=== PATIENT | male | born 1980 | race Caucasian/White ===

== ENCOUNTER 2019-04-12 10:31 | Emergency (ER) | payer OTHER ==
[2019-04-12 10:35] VITALS: RESP 18; TEMP 98.7
--- NOTE | 2019-04-12 11:31 | ED ---
Male Urogenital HPI - General Chief complaint: Urogenital Stated complaint: Unable to urinate Time Seen by Provider: 04/12/19 11:00 Source: patient, RN notes reviewed Mode of arrival: ambulatory Limitations: no limitations - History of Present Illness Initial comments: 38-year-old male presents emergency Department chief complaint of dysuria comfortable to urinate. Patient states she was seen last week at urgent care and was diagnosed with urinary tract infection. Patient states she's never had any issues with this in the past denies any history of gonorrhea chlamydia. Patient denies any penile discharge. Patient states he has pain between his scrotum and anus when he sits. Patient states that he was seen again at [facility] and was given for the next day but also advised to go to the emergency department. - Related Data Home Medications Medication Instructions Recorded Confirmed Albuterol Sulfate [Proair Hfa] 1 - 2 puff INHALATION RT-Q6H PRN 04/12/19 04/12/19 Fenofibrate,Micronized 67 mg PO DAILY@1200 04/12/19 04/12/19 [Fenofibrate] Glimepiride [Amaryl] 4 mg PO BID 04/12/19 04/12/19 Lisinopril [Zestril] 40 mg PO DAILY@1200 04/12/19 04/12/19 Omeprazole 20 mg PO DAILY PRN 04/12/19 04/12/19 metFORMIN HCL [metFORMIN HCL ER] 750 mg PO W/SUPPER 04/12/19 04/12/19 Previous Rx's Medication Instructions Recorded Sulfamethox-Tmp 800-160Mg [Bactrim 1 each PO Q12HR #20 tab 04/12/19 Ds] Allergies Allergy/AdvReac Type Severity Reaction Status Date / Time No Known Allergies Allergy Verified 04/12/19 11:26 Review of Systems ROS Statement: Those systems with pertinent positive or pertinent negative responses have been documented in the HPI. ROS Other: All systems not noted in ROS Statement are negative. Past Medical History Past Medical History: Diabetes Mellitus, Hypertension History of Any Multi-Drug Resistant Organisms: None Reported Past Surgical History: Appendectomy Past Psychological History: No Psychological Hx Reported Smoking Status: Never smoker Past Alcohol Use History: Occasional Past Drug Use History: None Reported General Exam Limitations: no limitations General appearance: alert, in no apparent distress Head exam: Present: atraumatic, normocephalic, normal inspection Neck exam: Present: normal inspection. Absent: tenderness, meningismus, lymphadenopathy Respiratory exam: Present: normal lung sounds bilaterally. Absent: respiratory distress, wheezes, rales, rhonchi, stridor Cardiovascular Exam: Present: regular rate, normal rhythm, normal heart sounds. Absent: systolic murmur, diastolic murmur, rubs, gallop, clicks GI/Abdominal exam: Present: soft, tenderness (Mild suprapubic), normal bowel sounds. Absent: distended, guarding, rebound, rigid Back exam: Absent: CVA tenderness (R), CVA tenderness (L) Skin exam: Present: warm, dry, intact, normal color. Absent: rash Course Vital Signs 04/12/19 10:32 Temperature 98.7 F Pulse Rate 101 H Respiratory 18 Rate Blood Pressure 175/82 O2 Sat by Pulse 99 Oximetry - Reevaluation(s) Reevaluation #1: 04/12/19 11:30 I did contact [facility] in which they stated they did not perform a urine culture. Medical Decision Making - Medical Decision Making 38-year-old male presents emergency Department with chief complaint of urinary tract infection and unable to urinate. Patient did have over a liter urine in his bladder after urinating. [place] catheter was placed at this time. Patient urinalysis reveals evidence of urinary tract infection. Patient's urine was cultured, gonorrhea chlamydia were cultured. Patient will leave Caballero catheter in place with follow-up with urology will be given Flomax now and upon discharge. Patient will be treated with Bactrim as he had a recent stent of ciprofloxacin. - Lab Data Lab Results 04/12/19 04/12/19 Range/Units 11:35 12:39 POC Glucose (mg/dL) 289 H (75-99) mg/dL POC Glu Supervisor Powdered Sugar ID [place] Urine Color Yellow Urine Appearance Cloudy (Clear) Urine pH 6.0 (5.0-8.0) Ur Specific [place] 1.029 (1.001-1.035) Urine Protein Trace H (Negative) Urine Glucose (UA) 4+ H (Negative) Urine Ketones 1+ H (Negative) Urine Blood Moderate H (Negative) Urine Nitrite Negative (Negative) Urine Bilirubin Negative (Negative) Urine Urobilinogen <2.0 (<2.0) mg/dL Ur Leukocyte Esterase Large H (Negative) Urine RBC 41 H (0-5) /hpf Urine WBC >182 H (0-5) /hpf Urine Bacteria Rare H (None) /hpf Urine Mucus Rare H (None) /hpf Disposition Clinical Impression: Prostatitis Disposition: HOME SELF-CARE Condition: Stable Instructions (If sedation given, give patient instructions): Prostatitis (ED) Additional Instructions: Please return to the Emergency Department if symptoms worsen or any other concerns. Prescriptions: Sulfamethox-Tmp 800-160Mg [Bactrim Ds] 1 each PO Q12HR #20 tab Is patient prescribed a controlled substance at d/c from ED?: No Referrals: Guerrero Werner III, MD [Primary Care Provider] - 1-2 days Sathya Garcia MD [STAFF PHYSICIAN] - 1-2 days Time of Disposition: 12:45
[2019-04-12] MEDS ORDERED: LIDOCAINE URO-JET JELLY 2% 5 ML KIT URETHRAL ONE (11:59)
[2019-04-12 12:07] LABS: Appearance,Urine Cloudy (Clear); Bacteria,Urine Rare /hpf; Bilirubin,Urine Negative (Negative); Blood,Urine Moderate (Negative); Color,Urine Yellow; Glucose,Urine (UA) 4+ (Negative); Ketones,Urine 1+ (Negative); Leukocyte Esterase,Urine Large (Negative); Mucus,Urine Rare /hpf; Nitrite,Urine Negative (Negative); Protein,Urine Trace (Negative); RBC,Urine 41 /hpf (0-5); Specific Gravity,Urine 1.029 (1.001-1.035); Urobilinogen,Urine <2.0 mg/dL (<2.0)
[2019-04-12 12:41] LABS: Glucose,Whole Blood 289 mg/dL (75-99)
[2019-04-12] MEDS ORDERED: TAMSULOSIN 0.4 MG CAP.ER.24H PO STA (12:43)
[2019-04-12 13:26] VITALS: BP 150/96; PULSE 60
[2019-04-14 07:54] LABS: C. trachomatis,PCR Negative (Neg,Equiv); Chlamydia trachomatis Source Urine
[2019-04-14 10:10] LABS: N. gonorrhoeae,PCR Negative (Neg,Equiv); Neisseria Source Urine
== END 2019-04-12 13:28 | disposition home or self-care (01) ==
LOC: EC 10:31
DX: N41.9 Inflammatory disease of prostate, unspecified (principal); N39.0 Urinary tract infection, site not specified; E11.9 Type 2 diabetes mellitus without complications; I10 Essential (primary) hypertension; Z79.84 Long term (current) use of oral hypoglycemic drugs; Z79.899 Other long term (current) drug therapy; Z90.89 Acquired absence of other organs
CPT/HCPCS: 36415; 51702; 51798; 81001; 87086; 87491; 87591; 99284

== ENCOUNTER → 2020-10-26 | Outpatient (CLI) | payer OTHER | END | disposition home or self-care (01) | LOC: LABWHC1 16:59 | PROVIDERS: ATTEND Family Medicine | DX: R05 Cough (principal); R09.81 Nasal congestion | CPT/HCPCS: U0003; C9803 ==